=== PATIENT | male | born 2000 | race Caucasian/White ===

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

== ENCOUNTER 2023-01-11 14:11 | Emergency (ER) | payer BC, OTHER ==
[2023-01-11 15:06] VITALS: TEMP 98.5
--- NOTE | 2023-01-11 15:16 | ED ---
Back Pain HPI - General Source: patient Limitations: no limitations <Chani Colvin - Last Filed: 01/11/23 15:15> <Fernando Jackson - Last Filed: 01/11/23 17:42> - General Chief Complaint: Back Pain/Injury Stated Complaint: back pain Time Seen by Provider: 01/11/23 15:16 - History of Present Illness Initial Comments: patient is a 22-year-old male presenting to the ER with chief complaint of back injury. Patient states he is listing something heavy when he heard a pop and he dropped. Patient endorses left-sided radiating pain. Patient denies any fevers, chills, bowel/bladder incontinence, or saddle paresthesias. (Chani Colvin) 22-year-old male presenting to the ED with a chief complaint of back pain. Annika ent states that he was trying to lift a bathtub and notes that he heard A pop in his lower back. States he fell to the ground due to the pain and had left lower back pain since then. Patient states pain is worse with movement and he has difficulties bending at the waist secondary to the pain. No saddle anesthesia or incontinence. No other injuries at this time. No other complaints. (Fernando Jackson) - Related Data Previous Rx's Medication Instructions Recorded Doxycycline Monohydrate [Monodox] 100 mg PO Q12HR #14 cap 07/09/18 Ibuprofen [Motrin] 600 mg PO Q8HR PRN #30 tab 07/09/18 Acetaminophen Tab [Tylenol] 1,000 mg PO Q6HR PRN #30 tablet 01/11/23 Ibuprofen 600 mg PO Q6H #30 tab 01/11/23 methocarbamoL [Robaxin-750] 750 mg PO QID PRN #16 tab 01/11/23 Allergies Allergy/AdvReac Type Severity Reaction Status Date / Time No Known Allergies Allergy Verified 01/11/23 14:56 Review of Systems ROS Other: All systems not noted in ROS Statement are negative. <Chani Colvin - Last Filed: 01/11/23 15:15> ROS Other: All systems not noted in ROS Statement are negative. <Fernando Jackson - Last Filed: 01/11/23 17:42> ROS Statement: Those systems with pertinent positive or pertinent negative responses have been documented in the HPI. Past Medical History Past Medical History: No Reported History Additional Past Medical History / Comment(s): PILONIDAL CYST. History of Any Multi-Drug Resistant Organisms: None Reported Additional Past Surgical History / Comment(s): TEAR DUCT SURG . Past Anesthesia/Blood Transfusion Reactions: No Reported Reaction Past Psychological History: No Psychological Hx Reported Smoking Status: Current every day smoker Past Alcohol Use History: None Reported Past Drug Use History: Marijuana - Past Family History Mother Family Medical History: No Reported History <Chani Colvin - Last Filed: 01/11/23 15:15> General Exam Limitations: no limitations <Cahni Colvin - Last Filed: 01/11/23 15:15> General appearance: alert, in no apparent distress Neck exam: Present: normal inspection Respiratory exam: Present: normal lung sounds bilaterally Cardiovascular Exam: Present: regular rate, normal rhythm GI/Abdominal exam: Present: soft Extremities exam: Present: other (Strength and sensation equal and intact in bilateral lower extremities. DP/PT pulses 2+.) Neurological exam: Present: alert, oriented X3 Skin exam: Present: warm, dry <Fernando Jackson - Last Filed: 01/11/23 17:42> - General Exam Comments Initial Comments: Visual Physical Exam Vital signs reviewed General: Well-appearing, nontoxic, no acute distress. Head: Normocephalic, atraumatic Eyes: PERRLA, EOMI ENT: Airway patent Chest: Nonlabored breathing Skin: No visual rash, normal skin tone Neuro: Alert and oriented 3 Musculoskeletal: No gross abnormalities (Chani Colvin) Course Vital Signs 01/11/23 01/11/23 14:54 17:34 Temperature 98.5 F Pulse Rate 87 56 L Respiratory 20 16 Rate Blood Pressure 109/73 105/61 O2 Sat by Pulse 99 95 Oximetry Medical Decision Making <Chani Colvin - Last Filed: 01/11/23 15:15> <Fernando Jackson - Last Filed: 01/11/23 17:42> - Medical Decision Making I performed the quick note portion of the exam. Electronically signed by Chani Colvin PA-C (Chani Colvin) Was pt. sent in by a medical professional or institution (RADHA James, TELEMARKETING SUPERVISOR, urgent care, hospital, or long-term...) When possible be specific @ -No Did you speak to anyone other than the patient for history (EMS, parent, family, police, friend...)? What history was obtained from this source @ -No Did you review nursing and triage notes (agree or disagree)? Why? @ -I reviewed and agree with nursing and triage notes Were old charts reviewed (outside hosp., previous admission, EMS record, old EKG, old radiological studies, urgent care reports/EKG's, long-term records)? Report findings @ -No old charts were reviewed Differential Diagnosis (chest pain, altered mental status, abdominal pain women, abdominal pain men, vaginal bleeding, weakness, fever, dyspnea, syncope, headache, dizziness, GI bleed, back pain, seizure, CVA, palpatations, mental health, musculoskeletal)? @ -Differential Back Pain: Strain, zoster, cauda equina syndrome, epidural abscess, vertebral osteomyelitis, discitis, fracture, subluxation, disc herniation, DJD, spinal stenosis, dissection, AAA, pancreatitis, peptic ulcer disease, pyelonephritis, kidney stone, this is not meant to be an all-inclusive list. EKG interpreted by me (3pts min.). @ -As above X-rays interpreted by me (1pt min.). @ -X-ray of the lumbar spine interpreted by me shows no evidence of acute finding. CT interpreted by me (1pt min.). @ -None done U/S interpreted by me (1pt. min.). @ -None done What testing was considered but not performed or refused? (CT, X-rays, U/S, labs)? Why? @ -None What meds were considered but not given or refused? Why? @ -None Did you discuss the management of the patient with other professionals (professionals i.e. , PA, TELEMARKETING SUPERVISOR, lab, RT, psych nurse, healthcare social worker, group home counselor, teacher, loans officer, telehealth case manager)? Give summary @ -No Was smoking cessation discussed for >3mins.? @ -No Was critical care preformed (if so, how long)? @ -No Were there social determinants of health that impacted care today? How? (Homelessness, low income, unemployed, alcoholism, drug addiction, transportation, low edu. Level, literacy, decrease access to med. care, fpc, rehab)? @ -No Was there de-escalation of care discussed even if they declined (Discuss DNR or withdrawal of care, Hospice)? DNR status @ -No What co-morbidities impacted this encounter? (DM, HTN, Smoking, COPD, CAD, Cancer, CVA, ARF, Chemo, Hep., AIDS, mental health diagnosis, sleep apnea, morbid obesity)? @ -None Was patient admitted / discharged? Hospital course, mention meds given and route, prescriptions, significant lab abnormalities, going to OR and other pertinent info. @ -Discharge 22-year-old male presents to the ED status post picking up a bathtub, hearing a pop in his back, experiencing low back pain. No saddle anesthesia or incontinence. Exam shows full strength and sensation in bilateral lower extremities with DP/PT pulses 2+. Imaging here shows no acute findings. Symptoms likely musculoskeletal in nature. At this time I'll signs stable afebrile. Discharged home in stable condition with prescriptions for Motrin, Tylenol, Robaxin. Discussed return precautions patient mother who verbalized route. Undiagnosed new problem with uncertain prognosis? @ -No Drug Therapy requiring intensive monitoring for toxicity (Heparin, Nitro, Insulin, Cardizem)? @ -No Were any procedures done? @ -No Diagnosis/symptom? @ -Low back pain Acute, or Chronic, or Acute on Chronic? @ -Acute Uncomplicated (without systemic symptoms) or Complicated (systemic symptoms)? @ -Uncomplicated Side effects of treatment? @ -No Exacerbation, Progression, or Severe Exacerbation? @ -No Poses a threat to life or bodily function? How? (Chest pain, [place], [place], pneumonia, PE, COPD, DKA, ARF, appy, cholecystitis, CVA, Diverticulitis, Homicidal, Suicidal, threat to staff... and all critical care pts) @ -No (Fernando Jackson) Disposition <Chani Colvin - Last Filed: 01/11/23 15:15> Is patient prescribed a controlled substance at d/c from ED?: No Time of Disposition: 17:42 <Fernando Jackson - Last Filed: 01/11/23 17:42> Clinical Impression: Back pain Disposition: HOME SELF-CARE Condition: Good Instructions (If sedation given, give patient instructions): Acute Low Back Pain (ED) Additional Instructions: Please return to the Emergency Department if symptoms worsen or any other concerns. Please follow up with your primary care provider. Prescriptions: Ibuprofen 600 mg PO Q6H #30 tab methocarbamoL [Robaxin-750] 750 mg PO QID PRN #16 tab PRN Reason: Pain Acetaminophen Tab [Tylenol] 1,000 mg PO Q6HR PRN #30 tablet PRN Reason: Pain Referrals: Ludwin Beltran MD [Primary Care Provider] - 1-2 days
[2023-01-11] MEDS ORDERED: KETOROLAC 15 MG/ML 1 ML VIAL IM STA (16:39)
--- NOTE | 2023-01-11 17:05 | XR ---
EXAMINATION TYPE: XR lumbar spine 2 or 3V DATE OF EXAM: 01/11/2023 3:48 PM CLINICAL INDICATION:Male, 22 years old with history of pain; [facility] COMPARISON: None TECHNIQUE: XR lumbar spine 2 or 3V - Frontal, lateral and coned in L5-S1 lateral views of the spine. FINDINGS: No evidence of any acute osseous pathology. No evidence of loss of vertebral body height i s seen. There is normal alignment of the lumbar vertebral bodies. Mild scattered disc space narrowing . Multilevel marginal osteophyte formation throughout the visualized spine. There is facet joint arth ropathy throughout the spine. Scattered at least mild neural foraminal stenosis. IMPRESSION: 1. No acute fracture. 2. Mild multilevel disc degeneration.
[2023-01-11 18:15] VITALS: BP 105/61; PULSE 56; RESP 16
== END 2023-01-11 17:50 | disposition home or self-care (01) ==
LOC: EC 14:11
DX: M51.36 Other intervertebral disc degeneration, lumbar region (principal); F17.200 Nicotine dependence, unspecified, uncomplicated; F12.90 Cannabis use, unspecified, uncomplicated; W19.XXXA Unspecified fall, initial encounter
CPT/HCPCS: 72100; 99283; 96372; J1885